=== PATIENT | male | born 1995 | race Caucasian/White ===

== ENCOUNTER 2022-05-31 17:01 | Emergency (ER) | payer BC, SELFPAY ==
--- NOTE | ~2022-05-31 | XR_ITS ---
EXAMINATION: XR chest 2V DATE: 05/31/2022 17:56 INDICATION: Midsternal chest pain TECHNIQUE: PA and lateral views of the chest were obtained. COMPARISON: None FINDINGS: The lungs are clear with no focal airspace opacities, pulmonary edema, pleural effusion or pneumothor ax. The cardiomediastinal silhouette is normal. Visualized bones and soft tissues are unremarkable. IMPRESSION: 1. No acute cardiopulmonary disease. Reviewed, dictated and finalized at location A. [facility]
--- NOTE | 2022-05-31 17:05 | ECG_ITS ---
Measurements Intervals [place] Rate: 64 P: 57 NM: 127 QRS: 74 QRSD: 96 T: 39 QT: 383 QTc: 398 Interpretive Statements SINUS RHYTHM INCOMPLETE RIGHT BUNDLE BRANCH BLOCK BORDERLINE ECG NO PREVIOUS ECG AVAILABLE FOR COMPARISON Electronically Signed On 05-31-2022 20:55:19 HAND PLEATER by Shakeel Ball D.O.
[2022-05-31 17:08] VITALS: BP 127/77; PULSE 64; RESP 16; TEMP 36.9; O2SAT 99
--- NOTE | 2022-05-31 17:14 | ED.CHESTPAIN ---
HPI - Chest Pain General Chief Complaint: Chest Pain Stated Complaint: CHEST PAIN Time Seen by Provider: 05/31/22 17:09 Source: patient Mode of arrival: ambulatory Limitations: no limitations History of Present Illness HPI narrative: Patient is a 27 y/o male who presents to the ED with c/o midsternal CP. Patient reports he developed pain in his midsternal chest approximately 1 hour prior to arrival when he was sitting down to eat Thanksgiving dinner with his family. Pain described as pressure or heaviness, has been persistent since then, but began to improve approximately 15 minutes ago once arriving at the ED. He has never had pain like this before. Denies history of hypertension, hyperlipidemia, diabetes, smoking, family history of heart disease. Denies shortness of breath, pain with inspiration, radiation of pain, abdominal pain, nausea, vomiting, diaphoresis, fever, recent cough or cold symptoms. Review of Systems Review of Systems: CONSTITUTIONAL: Denies fever, chills, or sweats. ENT: Denies rhinorrhea, congestion, sore throat. CARDIOVASCULAR: Reports midsternal chest pain. RESPIRATORY: Denies cough or dyspnea. Denies pleuritic pain. GASTROINTESTINAL: Denies abdominal pain, nausea, vomiting, or diarrhea. MUSCULOSKELETAL: Denies back pain. All systems reviewed & are unremarkable except as noted in HPI and below PMFSH Past Medical History Medical History No pertinent past medical history Surgical History Surgical History (Updated 05/31/22 @ 17:15 by Erendira Lau PA-C) No pertinent past surgical history Social History Social History (Updated 05/31/22 @ 17:33 by Erendira Lau PA-C) Smoking status: Never smoker Exam Narrative: GENERAL: Well appearing, well-nourished, non-toxic, in no acute distress. HEAD: Normocephalic, atraumatic. NECK: Supple. No adenopathy, no masses. RESPIRATORY: Airway patent, respirations nonlabored. Clear to auscultation bilaterally, no rales, rhonchi, wheezing. CARDIOVASCULAR: Regular rate and rhythm without murmurs, rubs, or gallops. Peripheral pulses 2+ and equal bilaterally. ABDOMINAL: Soft, nontender, nondistended, no hepatosplenomegaly. Normoactive BS. MUSCULOSKELETAL: Moves all extremities. Strength/ROM intact without gross deformities. No anterior chest wall tenderness. No edema. SKIN: Warm, dry, normal color. No rashes. NEURO: A&O X3. Speech clear. Cranial nerves II-XII grossly intact. Steady gait. No ataxic movements. PSYCHIATRIC: Appropriate mood and affect. Normal interaction. Course Vital Signs Vital signs: Vital Signs Temperature 98.4 F 05/31/22 17:08 Pulse Rate 64 05/31/22 17:08 Respiratory Rate 16 05/31/22 17:08 Blood Pressure 127/77 05/31/22 17:08 Pulse Oximetry 99 05/31/22 17:08 Oxygen Delivery Room Air 05/31/22 17:08 Temperature 98.4 F 05/31/22 17:08 Pulse Rate 64 05/31/22 17:08 Respiratory Rate 16 05/31/22 17:08 Blood Pressure 127/77 05/31/22 17:08 Pulse Oximetry 99 05/31/22 17:08 Oxygen Delivery Room Air 05/31/22 17:08 MDM - Chest Pain MDM Narrative Medical decision making narrative: Patient presented to the ED with 1 hour onset of midsternal chest pain. No significant risk factors for coronary disease. HEART score = 1. EKG w/o acute ischemic changes. Initial troponin negative. A low-risk Wells criteria is noted, PERC negative, PE is felt to be unlikely. No pneumonia seen on evaluation today. Patient is felt likely low risk for ACS but did discuss with patient that I would like to obtain 3-hour troponin given the timeline of his chest pain. Patient would like to leave the facility at this time. He does not wish to stay for further laboratory testing. I discussed that he will be signing out AGAINST MEDICAL ADVICE due to incomplete evaluation. He agrees to this. AMA paperwork signed. I discussed that he can return at any time to be evaluat
[2022-05-31 17:24] LABS: Basophils Absolute Auto 0.1 K/mm3 (0.0-0.1); Basophils Percent Auto 0.7 % (0.2-1.2); Eosinophils Absolute Auto 0.1 K/mm3 (0-0.3); Eosinophils Percent Auto 1.5 % (0-4.4); Hemoglobin 14.6 g/dL (14.0-18.0); Immature Granulocyte Absolute 0.02 K/mm3 (0.00-0.031); Immature Granulocyte Percent A 0.3 % (0-0.5); Lymphocytes Absolute Auto 1.95 K/mm3 (0.9-3.2); Lymphocytes Percent Auto 28.9 % (18.3-44.2); Mean Corpuscular HGB Conc 34.8 g/dl (32-36); Mean Corpuscular Hemoglobin 26.8 pg (26-34); Mean Corpuscular Volume 77.1 fl (80-100); Monocytes Absolute Auto 0.6 K/mm3 (0.1-0.6); Monocytes Percent Auto 8.6 % (2.6-8.5); Neutrophils Absolute Auto 4.1 K/mm3 (1.3-6.7); Platelet Count Result 292 k/mm3 (150-375); Red Blood Count 5.45 M/mm3 (4.6-6.20); Red Cell Distribution Width 12.8 % (11.5-14.5); White Blood Count 6.8 K/mm3 (4.5-10.0)
[2022-05-31 17:36] LABS: Prothrombin Time 13.1 Seconds (11.1-14.7)
[2022-05-31 17:48] LABS: Alanine Aminotransferase 16 U/L (6-50); Alkaline Phosphatase 63 U/L (38-126); Anion Gap 11 mmol/L (8-16); Aspartate Amino Transferase 35 U/L (17-59); Bilirubin,Total 1.2 mg/dL (0.2-1.3); Blood Urea Nitrogen 17 mg/dL (9-20); Calcium 9.3 mg/dL (8.4-10.2); Carbon Dioxide 27 mmol/L (22-30); Chloride 99 mmol/L (98-107); Estimated CRCL calculation 116 ml/min; Estimated Glomerular Filt Rate > 60; Glucose 98 mg/dL (65-110); Lipase 103 U/L (23-300); Potassium 3.6 mmol/L (3.4-5.0); Sodium 137 mmol/L (137-145)
[2022-05-31 18:01] LABS: Troponin I < 0.012 ng/mL (0.000-0.034)
== END 2022-05-31 18:55 | disposition left against medical advice (07) ==
PROVIDERS: Emergency Medicine
DX: R07.89 Other chest pain (principal); I45.10 Unspecified right bundle-branch block
CPT/HCPCS: 36415; 71046; 80053; 83690; 84484; 85025; 85610; 85730; 93005; 99284